=== PATIENT | male | born 1970 | race African-American/Black ===

== ENCOUNTER 2017-07-02 14:17 | Emergency (ER) | payer OTHER ==
[~2017-07-02] VITALS: Ht 170.2 cm; Wt 155.5 kg
[~2017-07-02 14:17] MED LIST: ASPIR 8181 M1 PO; ASPIR-LOW81 MG PO; ASPIR-TRIN325 M1 PO; ASPIRIN81 M2 PO; ATENOLOL50 MG PO; AUGMENTIN875 MG PO; BACTRIM,SEPT1 TABLET PO; BONINE25 MG PO; CHOLESTEROL MED; GLUCOPHAGE500 MG PO; HUMALOG100 UNIT/1 SC; HYDROCHLOROTHIAZIDE; IMODIUM MS REL1 EACH PO; LANTUS 10100 UNITS/ SC; LIDODERM 5% P1 PATCH TD; LISINOPRIL10 MG PO; LISINOPRIL2.5 MG PO; MAALOX QUICK1000 MG PO; MELOXICAM7.5 MG PO; METFORMIN HCL1000 MG PO; MOTRIN IB200 MG PO; NAPROSYN500 MG PO; NEURONTIN300 MG PO; NORCO 5/3251 TABLET PO; OXYCODONE-APAP1 EAC6 PO; OXYCODONE15 MG PO; PERCOCET 5/31 TABLET PO; PERCOCET 7.51 TABLET PO; PRAVACHOL40 MG PO; Prilosec PO; TYLENOL EXTRA500 MG PO; VALIUM5 MG PO; VITAMIN B-1100 MG PO; ZESTORETIC 20-1 EAC1 NG
[2017-07-02] MEDS ORDERED: LIDODERM 5% P1 PATCH TD (15:32)
[2017-07-02] MEDS ORDERED: NEURONTIN600 MG PO (15:33)
[2017-07-02] MEDS ORDERED: FLEXERIL10 MG PO (15:33)
[2017-07-02 15:41] VITALS: BP 160/101
== END 2017-07-02 15:47 | disposition home or self-care (01) ==
LOC: EME 14:17
DX: M54.5 Low back pain (principal); G89.29 Other chronic pain; E11.9 Type 2 diabetes mellitus without complications; Z79.4 Long term (current) use of insulin; I10 Essential (primary) hypertension; F17.200 Nicotine dependence, unspecified, uncomplicated
CPT/HCPCS: 72100; 82948; 99281; 99284; J1885

== ENCOUNTER 2017-10-22 19:49 | Emergency (ER) | payer OTHER ==
[~2017-10-22] VITALS: Ht 172.7 cm; Wt 153.2 kg
[~2017-10-22 19:49] MED LIST changes: +FLEXERIL10 MG PO; +NEURONTIN600 MG PO
[2017-10-22 20:57] LABS: BASOPHIL (%) 0.6 % (0-1); BASOPHIL COUNT 0.1 K/uL (0-0.1); EOSINOPHIL (%) 3.3 % (0-5); EOSINOPHIL COUNT 0.3 K/uL (0-0.3); HEMATOCRIT 36.3 % (38.0-50.0); HEMOGLOBIN 12.3 G/DL (12.5-16.6); IMMATURE GRANULOCYTE (%) 0.3 % (0.0-0.7); LYMPHOCYTE (%) 36.1 % (15-42); LYMPHOCYTE COUNT 2.8 K/uL (1.0-2.8); MCHC 33.9 G/DL (30.0-36.0); MCV 85.6 FL (86-99); MONOCYTE (%) 7.6 % (3-12); MONOCYTE COUNT 0.6 K/uL (0-0.8); NEUTROPHIL (%) 52.1 % (45-76); NEUTROPHIL COUNT 4.1 K/uL (1.8-6.4); PLATELET COUNT 196 K/uL (156-360); RBC DIS.WIDTH-CV 14.6 % (11.8-14.6); RBC DIS.WIDTH-SD 45.7 % (39-53); RED BLOOD COUNT 4.24 M/uL (4.00-5.50); WHITE BLOOD COUNT 7.9 K/uL (4.1-10.2)
[2017-10-22 21:05] LABS: ALBUMIN 3.7 g/dL (3.2-4.8); CHLORIDE 106 mEq/L (99-109); POTASSIUM 3.2 mEq/L (3.7-5.4); SODIUM 141 mEq/L (136-147)
[2017-10-22 21:08] LABS: GLUCOSE 136 mg/dL (70-99); TOTAL PROTEIN 6.9 g/dL (6.4-8.3)
[2017-10-22 21:10] LABS: TOTAL BILIRUBIN 0.3 mg/dL (0.0-1.0)
[2017-10-22 21:11] LABS: ALKALINE PHOSPHATASE 100 IU/L (3-129); SERUM ETHYL ALCOHOL < 10 mg/dL
[2017-10-22 21:12] LABS: GFR ESTIMATE (CALCULATED) > 59 mL/min/ (58.99-99999)
[2017-10-22 21:13] LABS: AST (GOT) 91 IU/L (2-34); UREA NITROGEN (BUN) 10 mg/dL (9-23)
[2017-10-22 21:14] LABS: ALT (GPT) 112 IU/L (3-49)
[2017-10-22 21:20] LABS: TROP-I INTERPRETATION NEGATIVE; TROPONIN-I 0.02 ng/mL (0.0-0.30)
[2017-10-22] MEDS ORDERED: VENTOLIN HFA18 GM IH (22:49)
[2017-10-22 23:30] VITALS: BP 143/90
== END 2017-10-23 00:21 | disposition home or self-care (01) ==
LOC: EME 19:49
PROVIDERS: Emergency Medicine
DX: J20.9 Acute bronchitis, unspecified (principal); E87.6 Hypokalemia; R94.31 Abnormal electrocardiogram [ECG] [EKG]; I10 Essential (primary) hypertension; E11.9 Type 2 diabetes mellitus without complications; E78.5 Hyperlipidemia, unspecified; F17.200 Nicotine dependence, unspecified, uncomplicated; Z79.84 Long term (current) use of oral hypoglycemic drugs; Z90.49 Acquired absence of other specified parts of digestive tract
CPT/HCPCS: 71046; 80053; 82948; 83735; 83880; 84484; 85025; 93005; 94640; 99281; 99284; G0480

== ENCOUNTER 2018-01-16 20:32 | Observation (INO) | payer OTHER ==
[~2018-01-16] VITALS: Ht 172.7 cm; Wt 157.0 kg
[~2018-01-16 20:32] MED LIST changes: +VENTOLIN HFA18 GM IH
[2018-01-16 21:06] LABS: BASOPHIL (%) 0.8 % (0-1); BASOPHIL COUNT 0.1 K/uL (0-0.1); EOSINOPHIL (%) 2.9 % (0-5); EOSINOPHIL COUNT 0.2 K/uL (0-0.3); HEMOGLOBIN 13.8 G/DL (12.5-16.6); IMMATURE GRANULOCYTE (%) 0.3 % (0.0-0.7); LYMPHOCYTE (%) 44.7 % (15-42); LYMPHOCYTE COUNT 3.6 K/uL (1.0-2.8); MCH 28.6 PG (29.0-34.0); MCHC 34.5 G/DL (30.0-36.0); MCV 82.8 FL (86-99); MONOCYTE (%) 9.2 % (3-12); MONOCYTE COUNT 0.7 K/uL (0-0.8); NEUTROPHIL (%) 42.1 % (45-76); NEUTROPHIL COUNT 3.4 K/uL (1.8-6.4); PLATELET COUNT 222 K/uL (156-360); RBC DIS.WIDTH-CV 13.8 % (11.8-14.6); RBC DIS.WIDTH-SD 41.3 % (39-53); RED BLOOD COUNT 4.83 M/uL (4.00-5.50)
[2018-01-16 21:13] LABS: ALBUMIN 3.8 g/dL (3.2-4.8)
[2018-01-16 21:14] LABS: CHLORIDE 102 mEq/L (99-109); POTASSIUM 3.8 mEq/L (3.7-5.4); SODIUM 136 mEq/L (136-147)
[2018-01-16 21:16] LABS: GLUCOSE 97 mg/dL (70-99); TOTAL PROTEIN 7.4 g/dL (6.4-8.3)
[2018-01-16 21:18] LABS: TOTAL BILIRUBIN 0.5 mg/dL (0.0-1.0)
[2018-01-16 21:19] LABS: ALKALINE PHOSPHATASE 74 IU/L (3-129)
[2018-01-16 21:20] LABS: GFR ESTIMATE (CALCULATED) > 59 mL/min/ (58.99-99999)
[2018-01-16 21:21] LABS: AST (GOT) 15 IU/L (2-34); UREA NITROGEN (BUN) 9 mg/dL (9-23)
[2018-01-16 21:22] LABS: ALT (GPT) 14 IU/L (3-49)
[2018-01-16 21:26] LABS: TROP-I INTERPRETATION NEGATIVE; TROPONIN-I < 0.01 ng/mL (0.0-0.30)
[2018-01-17 02:27] VITALS: BP 143/77
[2018-01-17 06:00] LABS: TROP-I INTERPRETATION NEGATIVE; TROPONIN-I < 0.01 ng/mL (0.0-0.30)
[2018-01-17 07:25] VITALS: BP 133/103
[2018-01-17 07:27] LABS: BENZODIAZEPINES, URINE SCREEN Negative (200 ng/mL)
[2018-01-17 11:33] VITALS: BP 145/79
[2018-01-17 12:56] LABS: TROP-I INTERPRETATION NEGATIVE; TROPONIN-I < 0.01 ng/mL (0.0-0.30)
[2018-01-17 13:30] VITALS: BP 145/79
== END 2018-01-17 14:26 ==
LOC: EME 20:32 → EDOF 01-17 00:57 → ENRESERV 01-17 00:58 → 4SOUTH 01-17 01:54
PROVIDERS: Emergency Medicine; Hospitalist
DX: R55 Syncope and collapse (principal); R51 Headache; R07.89 Other chest pain; R42 Dizziness and giddiness; E11.9 Type 2 diabetes mellitus without complications; Z79.4 Long term (current) use of insulin; Z79.82 Long term (current) use of aspirin; I10 Essential (primary) hypertension; E78.5 Hyperlipidemia, unspecified; R20.0 Anesthesia of skin; Z87.891 Personal history of nicotine dependence; Z82.49 Family history of ischemic heart disease and other diseases of the circulatory system
CPT/HCPCS: 70450; 70491; 71275; 80053; 80306 90; 82948; 84484; 85025; 93005; 99281; 99285; G0378; J1200; J1650; J1885; J2765